=== PATIENT | male | born 2000 | race Caucasian/White ===

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

== ENCOUNTER 2020-04-08 19:08 | Emergency (ER) | payer OTHER, MEDICAID, SELFPAY ==
[2020-04-08 19:09] VITALS: BP 140/77; PULSE 83; RESP 16; TEMP 36.4; O2SAT 98; BMI 21.3
--- NOTE | 2020-04-08 20:00 | RAD_ITS ---
HISTORY: LACERATION OF DISTAL PINKY FINGER WITH A KNIFE Technique: Left hand AP, lateral, and oblique radiographs Comparison: January 16, 2019 Findings: No acute fracture or dislocation. The fracture through the proximal end of the first proximal metacarpal has healed Osseous mineralization, joint spaces, and alignment otherwise appear preserved as imaged. There may be some soft tissue swelling medial to the fifth metacarpal. There has been growth and progressive near-complete fusion of the distal radius and ulna physes. RAD/Hand Min 3 Views IMPRESSION: No acute osseous abnormality identified in the Left . at 2052 Reported and signed by: Pranav Garcia MD Electronically Signed: Pranav Garcia MD at 20:50 EDT Tel , Service support ,
--- NOTE | 2020-04-08 20:33 | ED.VIS.GEN ---
History of Present Illness Chief Complaint: Upper Extremity Injury Informant: Patient Narrative: Patient is a 19-year-old previously healthy male who presents to the emergency department for laceration to tip of left pinky finger. He states that he was at work cutting boxes whenever his hand slipped. No active bleeding. Denies any loss of sensation. No difficulty moving the finger. He is not on any anticoagulation. Denies any other injury. He states that his last tetanus shot was within the past year. No known aggravating or relieving factors. Past Medical History - Allergies and Home Meds Allergies/Adverse Reactions: Allergies amoxicillin Allergy (Verified 04/08/20 19:09) Rash Primary Care Physician: Pranav Mejia MD [Primary Care Provider] - As Needed Past Medical History: None Smoking Status: Current some day smoker Review of Systems All systems negative except as indicated General: Denies: Chills, Fever Cardiovascular: Denies: Chest pain Respiratory: Denies: Dyspnea Gastrointestinal: Denies: Abdominal pain, Nausea, Vomiting Musculoskeletal: Reports: Extremity Pain Skin: Reports: Wounds - Laceration Hematologic: Denies: Easy bruising, Easy bleeding Physical Exam Vital Signs/Narrative: Vital Signs Temp Pulse Resp BP Pulse Ox 04/08/20 19:09 97.6 F L 83 16 140/77 H 98 Inital Vital Signs reviewed: Yes General: Well nourished, Well developed Head: Normocephalic, Atraumatic Eyes: Perrl, EOMI ENT: Moist mucous membranes Cardiovascular: Regular rate Respiratory: No distress, CTA bilaterally Abdomen: Soft, Nondistended Extremities: - - Superficial laceration to tip of left pinky finger. No active bleeding. Sensation intact. Has full range of motion. Good capillary refill. No active bleeding. Cut extends 0.5 cm. Skin: Normal color Neurological: Alert, Oriented x3 Psychological: Normal affect, Normal Mood Diagnostic/Tx/Re-eval - Medical Decision Making Patient presents to the emergency department for cut to his left pinky finger. He is up-to-date on his tetanus vaccinations. This does not require any repair. This was cleaned with soap and water. Finger dressed with Band-Aid and antibiotic ointment. This did occur at work and the workman comp form was filled out. At this time patient be discharged home in stable condition. Warning signs and symptoms for which to return to the ED are reviewed with him. He understands and is agreeable this plan. Will discharge home in stable condition. ED Disposition - Plan for ED Patient: Disposition: Home or Assisted Living Diagnosis: Finger laceration Instructions: ED Laceration Small or Superficial Not Stitched Referrals: Pranav Mejia MD [Primary Care Provider] - As Needed
== END 2020-04-08 20:55 | disposition home or self-care (01) ==
LOC: ED 20:53
PROVIDERS: Emergency Provider Emergency Medicine; PCP Pediatrics
DX: S61.217A Laceration without foreign body of left little finger without damage to nail, initial encounter (principal); F17.200 Nicotine dependence, unspecified, uncomplicated; W26.8XXA Contact with other sharp object(s), not elsewhere classified, initial encounter; Y93.89 Activity, other specified; Y92.89 Other specified places as the place of occurrence of the external cause; Y99.0 Civilian activity done for income or pay
CPT/HCPCS: 73130; 99282

== ENCOUNTER 2021-05-27 13:22 | Emergency (ER) | payer OTHER, MEDICARE, MEDICAID, SELFPAY ==
[2021-05-27 13:23] VITALS: BP 149/91; PULSE 119; RESP 16; TEMP 36.4; O2SAT 98; BMI 24.8
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
--- NOTE | 2021-05-27 13:50 | RAD_ITS ---
STUDY: X-RAY - LEFT KNEE REASON FOR EXAM: Left knee pain, left knee injury. TECHNIQUE: 4 view(s) of the knee. COMPARISON: None. FINDINGS: Normal visualized distal femur. Normal visualized proximal tibia and fibula. Normal proximal tibiofibular articulation. Normal medial femorotibial compartment. Normal lateral femorotibial compartment. Normal patellofemoral articulation. There is a joint effusion. RAD/Knee 4 or More Views IMPRESSION: Joint effusion. No demonstrated fracture. Electronically Signed: Shon Jensen MD at 14:20 EST Tel , Service support ,
== END 2021-05-27 15:01 | disposition home or self-care (01) ==
LOC: ED 14:43
PROVIDERS: Emergency Provider Emergency Medicine; PCP Pediatrics
DX: S80.02XA Contusion of left knee, initial encounter (principal); S83.92XA Sprain of unspecified site of left knee, initial encounter; F17.210 Nicotine dependence, cigarettes, uncomplicated; V23.4XXA Motorcycle driver injured in collision with car, pick-up truck or van in traffic accident, initial encounter; Y93.55 Activity, bike riding; Y92.410 Unspecified street and highway as the place of occurrence of the external cause; Y99.8 Other external cause status
CPT/HCPCS: 73564; 99283

== ENCOUNTER 2022-12-13 21:10 | Emergency (ER) | payer MEDICARE, MEDICAID, SELFPAY ==
[2022-12-13 21:11] VITALS: BP 132/87; PULSE 76; RESP 16; TEMP 36.8; O2SAT 99; BMI 21.4
--- NOTE | 2022-12-13 21:36 | RAD_ITS ---
INDICATION: trauma EXAMINATION/TECHNIQUE: X-RAY - LEFT XR Wrist Min 3 Views 3 VIEWS COMPARISON: Left hand radiograph same day FINDINGS: SOFT TISSUES: No soft tissue swelling or gas. No radiopaque foreign body. BONES/JOINTS: No acute fracture. Osseous remodeling of the first metacarpal from prior injury.. Normal alignment. Preservation of the joint space.. No osseous erosion. Small bone island within the scaphoid.. RAD/Wrist min 3 Views IMPRESSION: No acute osseous finding. Sequela of old first of metacarpal fracture. Electronically Signed: Mushtaq Steele MD at 22:28 EDT ,
--- NOTE | 2022-12-13 22:00 | RAD_ITS ---
INDICATION: trauma EXAMINATION/TECHNIQUE: X-RAY - LEFT XR Hand Min 3 Views 3 VIEWS COMPARISON: Wrist radiographs same day FINDINGS: SOFT TISSUES: No soft tissue swelling or gas. No radiopaque foreign body. BONES/JOINTS: No acute fracture. Multiple overlapping soft tissue shadows project over the second metacarpal head. First metacarpal osseous remodeling from prior injury.. Normal alignment. Preservation of the joint space.. No sclerotic or destructive changes observed. Small scaphoid bone island. RAD/Hand Min 3 Views IMPRESSION: No acute osseous finding. Sequela of old first metacarpal fracture.. Electronically Signed: Mushtaq Steele MD at 22:31 EDT ,
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
== END 2022-12-13 22:37 | disposition home or self-care (01) ==
PROVIDERS: Emergency Provider Emergency Medicine; PCP Pediatrics; Visit Provider Emergency Medicine
DX: S67.22XA Crushing injury of left hand, initial encounter (principal); S60.212A Contusion of left wrist, initial encounter; F17.210 Nicotine dependence, cigarettes, uncomplicated; V29.888A Rider (driver) (passenger) of other motorcycle injured in other specified transport accidents, initial encounter
CPT/HCPCS: 73110; 73130; 99282

== ENCOUNTER 2023-03-19 13:02 | Emergency (ER) | payer MEDICARE, MEDICAID, SELFPAY ==
[2023-03-19 13:04] VITALS: BP 118/80; PULSE 87; RESP 18; TEMP 36.6; O2SAT 99; BMI 21.2
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
== END 2023-03-19 13:46 | disposition home or self-care (01) ==
LOC: ED 13:45
PROVIDERS: Emergency Provider Emergency Medicine; PCP Pediatrics; Visit Provider Emergency Medicine
DX: S09.90XA Unspecified injury of head, initial encounter (principal); F17.210 Nicotine dependence, cigarettes, uncomplicated; V47.6XXA Car passenger injured in collision with fixed or stationary object in traffic accident, initial encounter
CPT/HCPCS: 99282

== ENCOUNTER 2023-03-27 22:46 | Emergency (ER) | payer MEDICARE, MEDICAID, SELFPAY ==
[2023-03-27 22:47] VITALS: BP 132/79; PULSE 75; RESP 18; TEMP 36.3; O2SAT 99; BMI 21.7
--- NOTE | 2023-03-27 23:02 | CT_ITS ---
INDICATION: headaches, syncope EXAMINATION: CT BRAIN - CT Head or Brain W/O Contrast Injection TECHNIQUE: Multiple axial images were obtained of the head without intravenous contrast. A radiation dose optimization technique was used for this scan. IV Contrast dosage and agent: None. RADIATION DOSAGE (If Supplied By Facility): CTDIvol = ( 44.99 ) mGy, DLP = ( 779.24 ) mGycm COMPARISON: None. FINDINGS: BRAIN: No acute bleed. No edema. Decreased attenuation in the left posterior parietal/occipital region likely encephalomalacia. Ex vacuo dilatation of the posterior horn left lateral ventricle. Bettencourt-white matter differentiation is maintained. VENTRICLES AND SULCI: Not dilated. EXTRA-AXIAL: No hemorrhage, fluid collection, or mass. CALVARIUM / SKULL BASE: Unremarkable. FACE/SINUSES: Mucosal thickening with possible polyp or retention cyst in the right sphenoid sinus. SOFT TISSUES: Unremarkable. CT/Brain/Head without Contrast IMPRESSION: No definite acute abnormality. Hypoattenuation in the left parietal and occipital regions likely related to prior infarct or other prior insult. MRI would be helpful for further evaluation. Electronically Signed: Davina Suazo MD at 23:34 EDT ,
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
[2023-03-27 23:43] VITALS: PULSE 80; RESP 16; O2SAT 98
== END 2023-03-27 23:59 | disposition home or self-care (01) ==
PROVIDERS: Emergency Provider Emergency Medicine; PCP Pediatrics; Visit Provider Emergency Medicine
DX: G93.89 Other specified disorders of brain (principal); F17.210 Nicotine dependence, cigarettes, uncomplicated; S09.90XA Unspecified injury of head, initial encounter; V49.9XXA Car occupant (driver) (passenger) injured in unspecified traffic accident, initial encounter; W22.09XA Striking against other stationary object, initial encounter
CPT/HCPCS: 70450; 99282

== ENCOUNTER 2023-04-04 03:32 | Emergency (ER) | payer MEDICARE, MEDICAID, SELFPAY ==
[2023-04-04 03:33] VITALS: BP 128/72; PULSE 65; RESP 16; TEMP 36.1; O2SAT 99; BMI 21.9
--- NOTE | 2023-04-04 03:36 | EDS_ITS ---
HPI History of Present Illness Chief Complaint: Chest Pain [facility] Medical History ADD (attention deficit disorder) ADHD Bipolar 1 disorder TBI (traumatic brain injury) Home Medications NK 03/19/23 [History Last Taken Unknown] Allergy/AdvReac Type Severity Reaction Status Date / Time amoxicillin Allergy Rash Verified 04/04/23 03:36 Family History (Updated 03/19/23 @ 13:23 by Shira Bernal) Father Diabetes Mother Diabetes Social History household members: family housing: apartment Smoking Status: Current some day smoker tobacco type: cigarettes EXAM Physical Exam Const Vital Signs: 04/04/23 03:33 Temperature 96.9 F L Temperature Source Temporal Pulse Rate 65 Respiratory Rate 16 Blood Pressure 128/72 H Blood Pressure Mean 90 Pulse Ox 99 Oxygen Delivery Method Room Air MDM MDM MDM Narrative Medical decision making narrative: HISTORY OF PRESENT ILLNESS: 22-year-old male presents with chest pain. Patient notes midsternal chest pain towards the deep breath. Started through lifting boxes. He further states midsternal chest pain at work while moving boxes. States his pain was worse with exertion. States he has no pain now. 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 He is to be worked up he does not want a blood work at this time. No nausea vomiting. No bleeding diathesis. No recent illness such as cough or fever Patient denies sudden onset of pain, no tearing sensation, no migratory symptoms, no new numbness, weakness or loss of sensation. Patient denies family history or personal history of Marfan syndrome or Samy-Danlos. The patient denies recent surgery in the last 4 weeks or immobilization in the last 3 days, denies previous diagnosis of DVT or PE, hemoptysis, unilateral leg swelling or malignancy with treatment the last 6 months. No estrogen use noted. REVIEW OF SYSTEMS: All other systems reviewed and are negative except as noted in the history of present illness. At least 10 review of systems reviewed and are negative except as noted in history of present illness. PHYSICAL EXAM: Nursing triage notes reviewed, Vital signs reviewed Constitutional: please see mdm HENT: MMM Eyes: Pupils equal round and reactive to light, Extraocular muscles intact Neck: No stridor, no JVD, full neck ROM Lungs: Clear to auscultation, No wheezing or rales. No increased work of breathing, no conversational dyspnea, no accessory muscle use, no nasal flaring. No respiratory distress noted Heart: Regular rate and rhythm, No murmurs, No rubs and No gallops, 2+ distal pulses (radial, femoral, posterior tibial) in all extremities Abdomen: Soft, there is no tenderness, rigidity, rebound or guarding, no obvious peritoneal signs, no palpable pulsatile abdominal masses, no auscultated abdominal bruit : No CVAT Extremities: No edema Neuro: No focal neurological deficits, cranial nerves II through XII intact, 5/5 strength in all extremities. Intact sensation to light touch in all extremities, 2+ reflexes bilateral patella tendons. Normal gait. No ataxia. Skin: No rash or lesions noted MEDICAL DECISION MAKING: Chief Complaint: Chest pain External records reviewed: No recent cardiac catheterizations, stress test or echocardiograms noted in the chart Factors affecting care: ADHD, bipolar disorder Social determinants of health: History mental health disorders History obtained from others: EMS Consults: none MDM Narrative: Patient was hemodynamically stable, afebrile, nontoxic-appearing. Exam with focal cardiopulmonary abnormalities. I considered the following differential diagnosis: ACS, arrhythmia, anemia, electrolyte abnormality, pneumonia, pneumothorax, GI etiology, PE I offer the patient labs, chest x-ray to further elucidate the etiology patient complaints. Patient was alert and orient x3 and had capacity to make decisions and chose to forego blood work or imaging at this time. He states he had no chest pain. He states he is not concerned. States the only reason he is here is because his boss made him come to the emergency department EKG with sinus bradycardia, normal axis, normal intervals, no obvious STEMI, no signs of right heart strain, no Brugada syndrome noted, no ARVD or WPW noted PE less likely given low risk Wells score. Aortic dissection is thought to be less likely given no sudden ripping or tearing pain, migratory pain, palpable pulse inequalities, no focal neurologic deficits concurrent with chest pain. Chance of dissection less than 07/1999. Pericarditis less likely given no pathognomonic EKG changes (no diffuse ST elevations, [place] depressions). GI etiology (i.e. Boerhaave syndrome) less likely given no chest or neck crepitus, no vomiting or forced retching. The patient and/or family, caregivers express understanding. The patient and/or family, caregivers agrees with the plan. Total critical care time today provided was at least 0 minutes. This excludes separately billable procedures. Critical care time (if documented) is secondary to the patient having high probability of clinically significant/life threatening deterioration in the patient's condition which required my urgent intervention. Impression: 1. Chest pain Disposition: Discharge home Jensen Soler DO Discharge Plan Triage Chief Complaint: Chest Pain ED Provider: Jensen Soler Dx/Rx/DC Orders Instructions: Chest Pain [facility] Prescriptions: No Action NK Stand Alone Forms: Work / School Excuse Primary Care Provider: Pranav Mejia Referrals: Pranav Mejia MD [Primary Care Provider] - Activity Restrictions/Additional Instructions: Thank you for trusting us with your care today! Please take Tylenol (2 pills, 650 mg), ibuprofen (2 pills, 400 mg) every 6 hours as needed for pain and fever control. Please return to the emergency department if your symptoms change or worsen. Typically develop loss of consciousness, worsening chest pain, shortness of breath, coughing blood, leg swelling, focal weakness numbness or loss of sensation. Please follow with your primary care physician for further outpatient evaluation and management. Disposition Disposition: Home, Self Care
[2023-04-04 04:06] VITALS: BP 126/74; PULSE 68
--- NOTE | 2023-04-04 04:20 | EKG12_ITS ---
Test Reason : CP Blood Pressure : / mmHG Vent. Rate : 053 BPM Atrial Rate : 053 BPM P-R Int : 150 ms QRS Dur : 092 ms QT Int : 408 ms P-R-T Axes : 038 053 031 degrees QTc Int : 382 ms Sinus bradycardia with marked sinus arrhythmia Otherwise normal ECG Confirmed by CATHLEEN SORIA, HARINDER ([id number]), magazine editor J CARLOS CAEMRON ([id number]) on 04/05/2023 2:41:20 PM Referred By: JOSE Confirmed By:HARINDER CONNOLLY MD
== END 2023-04-04 04:07 | disposition home or self-care (01) ==
LOC: ED 04:03
PROVIDERS: Emergency Provider Emergency Medicine; PCP Pediatrics; Visit Provider Emergency Medicine
DX: R07.9 Chest pain, unspecified (principal); F31.9 Bipolar disorder, unspecified; F17.210 Nicotine dependence, cigarettes, uncomplicated; F90.9 Attention-deficit hyperactivity disorder, unspecified type; R00.1 Bradycardia, unspecified
CPT/HCPCS: 93005; 99284; A4216

== ENCOUNTER 2023-06-15 17:57 | Emergency (ER) | payer MEDICARE, MEDICAID, SELFPAY ==
[2023-06-15 17:57] VITALS: BP 130/87; PULSE 65; RESP 18; TEMP 35.6; O2SAT 100; BMI 22.4
[2023-06-15 20:05] VITALS: BP 135/96; PULSE 77; RESP 16; TEMP 37.3; O2SAT 100
--- NOTE | 2023-06-15 20:29 | EDS_ITS ---
HPI History of Present Illness Chief Complaint: Dental Informant: patient Onset/Context/Timing Onset: Today Context: Gradual Onset Timing: Intermittent Quality: Sharp, aching, throbbing Location: Left upper molars Worsened by: Eating Relieved by: - (Nothing) Associated Symptoms Assocated Symptom - Dental: face swelling; Negative for fever, jaw swelling, cold sensitivity or hot sensitivity Narrative Narrative: Patient presents with left upper dental pain that began earlier today. Patient states it is gradually gotten worse. Patient states it comes and goes. Patient describes it as sharp and aching. Patient states it is mainly over the left upper molars. Patient states it is worse with eating. Patient admits to some swelling of his cheek. Patient denies any fevers or chills. Patient denies any hot or cold sensitivity. Patient does admit to a mild headache. [facility] Medical History ADD (attention deficit disorder) ADHD Bipolar 1 disorder TBI (traumatic brain injury) Home Medications clindamycin HCl 300 mg capsule (Cleocin HCl) 300 mg PO Q6H #40 CAPSULES 06/15/23 [Rx Last Taken Unknown] Allergy/AdvReac Type Severity Reaction Status Date / Time amoxicillin Allergy Rash Verified 04/04/23 03:36 Family History (Updated 03/19/23 @ 13:23 by Shira Bernal) Father Diabetes Mother Diabetes Surgical History no surgical history no surgical history Social History household members: family housing: apartment Smoking Status: Current some day smoker tobacco type: cigarettes ROS ROS ED Constitutional Constitutional ED: Denies chills or fever(s) Eyes Eyes: Denies blurry vision or change in vision ENT ENT ED: Denies rhinorrhea or sore throat Cardiovascular Cardiovascular: Denies chest pain or palpitations Respiratory/Chest Respiratory/Chest: Denies cough or dyspnea Gastrointestinal Gastrointestinal: Denies nausea or vomiting Genitourinary Genitourinary ED: Denies dysuria or hematuria Musculoskeletal Musculoskeletal: Denies back pain or neck pain Integumentary Denies abscess or rash Neurologic Neurologic: Reports headache(s); Denies weakness Allergic/Immunologic Allergic/Immunologic ED: Denies mouth swelling or urticaria EXAM Physical Exam Const Vital Signs: 06/15/23 17:57 06/15/23 20:05 Temperature 96.1 F L 99.1 F Temperature Source Temporal Temporal Pulse Rate 65 77 Respiratory Rate 18 16 Blood Pressure 130/87 H 135/96 H Blood Pressure Mean 101 109 Pulse Ox 100 100 Oxygen Delivery Method Room Air Room Air Positive well nourished and well developed General Appearance ED: well developed and NAD HEENT HEENT Narrative: There is a large dental carry noted over the left upper third molar. There is some mild gingival edema around this tooth. There is no fluctuance. There is no evidence of any abscess. There is no sublingual edema edema. There is no evidence of Yury's angina. Oropharynx is clear. Airway is patent. Mouth ED: Yes oral and palatal mucosa normal, Yes lips normal and Yes tongue normal Mouth: oral and palatal mucosa normal, lips normal and tongue normal Teeth and Gingiva: caries Throat: posterior oropharynx normal Neck supple and no JVD General: Negative for anterior neck swelling, tenderness or submandibular swelling Neuro oriented x3, CN's II-XII intact bilaterally, moves all extremities, no focal motor deficits and no sensory deficits noted Sensorium / Orientation: alert Motor Exam: strength 5/5 throughout Psych mental status grossly normal MDM MDM MDM Narrative Medical decision making narrative: Patient was advised that he has infected dental caries. Patient was given a dose of clindamycin here. Patient was given a prescription for clindamycin. Patient was given dental referral sheet. Patient was instructed to follow-up with a dentist in 5 to 7 days. Patient was instructed to return if worse in any way. Patient was instructed to take Tylenol or ibuprofen as needed for pain. Patient understood and was agreeable with the plan. All questions were answered. Discharge Plan Triage Chief Complaint: Dental ED Provider: Arturo Lantigua Dx/Rx/DC Orders Clinical Impression: Infected dental caries Instructions: ED Dental Cavity Prescriptions: New clindamycin HCl [Cleocin HCl] 300 mg capsule 300 mg PO Q6H Qty: 40 0RF Primary Care Provider: Pranav Mejia Referrals: Pranav Mejia MD [Primary Care Provider] - Dentist,Your [STAFF PHYSICIAN] - 5-7 Days Disposition Disposition: Home, Self Care
[2023-06-15] MEDS: Clindamycin HCl 150 MG Capsule 300 MG PO (20:38)
== END 2023-06-15 20:40 | disposition home or self-care (01) ==
PROVIDERS: Emergency Provider Emergency Medicine; PCP Pediatrics; Visit Provider Emergency Medicine
DX: K02.9 Dental caries, unspecified (principal); F17.210 Nicotine dependence, cigarettes, uncomplicated; R51.9 Headache, unspecified
CPT/HCPCS: 99282

== ENCOUNTER 2023-08-17 21:02 | Emergency (ER) | payer OTHER, MEDICARE, MEDICAID, SELFPAY ==
[2023-08-17 21:03] VITALS: BP 135/76; PULSE 89; RESP 18; TEMP 35.9; O2SAT 99; BMI 23.5
--- OUTSIDE RECORDS SUMMARY | 2023-08-17 21:25 | XMS RPT_ITS | CCD ---
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 disability TBI (traumatic brain injury) ([facility]) History reviewed. No pertinent surgical history. ALLERGIES Amoxicillin MEDICATIONS melatonin 3 mg tablet Take 1 tablet by mouth once daily. risperiDONE (RISPERDAL) 1 mg tablet Take 1 tablet by mouth twice daily. albuterol HFA (PROVENTIL HFA, VENTOLIN HFA) 90 mcg/actuation inhaler Inhale 2 Puffs as instructed four times daily as needed. FOR WHEEZING AND SHORTNESS OF BREATH. amphetamine sulfate 5 mg tab Take 3 tablets by mouth once daily for 1 day. Amphetamine-Dextroamphetamine (ADDERALL) 30 mg tablet Take 1 tablet by mouth once daily for 1 day. History reviewed. No pertinent family history. Social History Tobacco Use Smoking status: Never Smoker Smokeless tobacco: Never Used Substance Use Topics Alcohol use: Not on file Drug use: Not on file BP 122/80 Pulse 84 Temp 36.7 C (98.1 F) Resp 20 Wt 69.7 kg (153 lb 9.6 oz) SpO2 99% Review of Systems Constitutional: Negative for chills, fever and malaise/fatigue. HENT: Negative for congestion, ear discharge, ear pain, sinus pain and sore throat. Eyes: Negative for blurred vision, pain, discharge and redness. Respiratory: Negative for cough, hemoptysis, sputum production, shortness of breath, wheezing and stridor. Cardiovascular: Negative for chest pain. Gastrointestinal: Negative for abdominal pain, diarrhea, nausea and vomiting. Genitourinary: Negative. Musculoskeletal: Negative for myalgias. Skin: Positive for itching and rash. Neurological: Negative for dizziness and headaches. Objective Physical Exam Constitutional: General: He is not in acute distress. Appearance: He is not diaphoretic. HENT: Head: Normocephalic. Mouth/Throat: Mouth: Mucous membranes are moist. Pharynx: Oropharynx is clear. No oropharyngeal exudate or posterior oropharyngeal erythema. Eyes: Conjunctiva/sclera: Conjunctivae normal. Pupils: Pupils are equal, round, and reactive to light. Cardiovascular: Rate and Rhythm: Normal rate and regular rhythm. Heart sounds: Normal heart sounds. Pulmonary: Effort: Pulmonary effort is normal. No tachypnea, accessory muscle usage or respiratory distress. Breath sounds: Normal breath sounds. No stridor. Abdominal: Palpations: Abdomen is soft. Tenderness: There is no abdominal tenderness. Musculoskeletal: Cervical back: Normal range of motion and neck supple. No rigidity or tenderness. Lymphadenopathy: Cervical: No cervical adenopathy. Skin: General: Skin is warm and dry. Comments: Excoriation noted bilateral lower legs and arms. Scabbing noted. No secondary bacterial infection. No remote redness. Neurological: Mental Status: He is alert and oriented to person, place, and time. ASSESSMENT/PLAN: 1. Rash - ICD9: 782.1, ICD10: R21 Patient diagnosed with rash. No evidence of bacterial infection. Patiently placed on prednisone burst. Patient will follow up with dermatology for further evaluation and care. Red flags for prompt reevaluation discussed. Patient was educated on supportive therapies. Patient will follow up with primary care provider as needed. Patient was instructed to immediately proceed to emergency room for any new, worsening, or symptoms lasting longer than anticipated. The patient's clinical presentation is otherwise unremarkable at this time. Based on exam and clinical finding, the patient is stable for discharge. Plan of care was discussed with patient. Patient verbalizes understanding and agrees to plan of care. This note was generated using [email or web address] software. It may contain errors in wording, punctuation, or spelling. Omar Lim APRN.SANDY documented in this encounter [facility] Evaluation + Plan note Note Date & Type Note Facility Evaluation + Plan note No data available for this section [facility] Evaluation note Note Date & Type Note Facility documented in this encounter [facility] Progress note Note Date & Type Note Facility Progress note No data available for this section [facility] Purpose Family History No Family History Records FoundNo Family History Records FoundNo Family History Records Found Advance Directives No Advanced Directives Records FoundNo Advanced Directives Records FoundNo Advanced Directives Records Found Additional Source Comments (unrecognized sect ion and content) No Status Records FoundNo Status Records FoundNo Status Records Found INFORMATION SOURCE (unrecogn ized section and content) DATE CREATED AUTHOR AUTHOR'S ORGANIZ ATION 10/16/2021 [facility] DATE CREATED AUTHOR AUTHOR'S ORGANIZ ATION 09/09/2022 [facility] Source Comments (unrecognize d section and content) In the event this informatio n is protected by the Federal Confidentiality of Alcohol and Drug Abuse Patient Records regulations: The Federal rules restrict any use of the information to criminally investigate or prosecute any alcohol or drug abuse patient.[facility] Reason for Visit (unrecogniz ed section and content) Care Teams (unrecognized sec tion and content) FOR RECORDS PERTAINING TO PATIENTS WHO ARE OR HAVE BEEN ENROLLED IN A CHEMICAL DEPENDENCY/SUBSTANCEABUSE PROGRAM, SOME INFORMATION MAY BE OMITTED. This clinical summary was aggregated from multiple sources. Caution should be exercised in using it in the provision of clinical care. This summary normalizes information from multiple sources, and as a consequence, information in this document may materially change the coding, format and clinical context of patient data. In addition, data may be omitted in some cases. CLINICAL DECISIONS SHOULD BE BASED ON THE PRIMARY CLINICAL RECORDS. [facility]. provides no warranty or guarantee of the accuracy or completeness of information in this document.
--- NOTE | 2023-08-17 22:52 | EDS_ITS ---
HPI History of Present Illness Chief Complaint: Laceration Informant: patient Narrative Narrative: Patient is a 22-year-old male with past medical history of ADHD and asthma. He states he was at work this evening roughly 1 hour prior to arrival when a piece of metal struck him in the right sided face/chin. He reports that he did not experience any type of LOC. He denies any history of bleeding disorder or blood thinner use. He denies any difficulty opening or closing his jaw or difficulty swallowing. He states there was concern he may need wound closed with sutures or glue and therefore comes in for evaluation. Patient states he is unsure of his tetanus status but he does not want one at this time [facility] Medical History ADD (attention deficit disorder) ADHD Bipolar 1 disorder TBI (traumatic brain injury) Home Medications dextroamphetamine-amphetamine ER 20 mg 24hr capsule,extend release 40 mg PO LUNCH 08/17/23 [History Last Taken Unknown] Allergy/AdvReac Type Severity Reaction Status Date / Time amoxicillin Allergy Rash Verified 08/17/23 21:02 Family History Father Diabetes Mother Diabetes Social History household members: family housing: apartment Smoking Status: Current some day smoker tobacco type: cigarettes ROS ROS ED Constitutional Constitutional ED: Denies chills or fever(s) Eyes Eyes: Denies change in vision ENT ENT ED: Denies sore throat Cardiovascular Cardiovascular: Denies chest pain Respiratory/Chest Respiratory/Chest: Denies cough or dyspnea Gastrointestinal Gastrointestinal: Denies abdominal pain, diarrhea, nausea or vomiting Genitourinary Genitourinary ED: Denies dysuria Musculoskeletal Musculoskeletal: Denies back pain, myalgias or neck pain Integumentary Reports other Details: Positive facial laceration Neurologic Neurologic: Denies headache(s) or paresthesias Hematologic/Lymphatic Hematologic/Lymphatic: Denies easy bleeding or easy bruising EXAM Physical Exam Const Vital Signs: 08/17/23 21:03 08/17/23 23:31 Temperature 96.6 F L 98.6 F Temperature Source Temporal Pulse Rate 89 80 Respiratory Rate 18 12 Blood Pressure 135/76 H 128/74 H Blood Pressure Mean 95 92 Pulse Ox 99 97 Oxygen Delivery Method Room Air Positive well nourished and well developed General Appearance ED: well developed HEENT HEENT Narrative: Patient has a linear 2 cm laceration along the right lateral portion of the chin. The wound is subcutaneous layer deep with minimal ooze of blood and no foreign body. Otherwise head shows no signs of depressed or basilar skull fracture No signs of derangement to the mandible No signs of dental fracture Eyes PERRL and EOMs intact bilaterally Neck supple Resp normal respiratory effort and clear to auscultation bilaterally Cardio regular rate and regular rhythm Extremity normal to inspection Neuro oriented x3, CN's II-XII intact bilaterally and no sensory deficits noted Sensorium / Orientation: alert Motor Exam: strength 5/5 throughout Psych mental status grossly normal Skin Skin Narrative: Laceration to the face as documented above MDM MDM MDM Narrative Medical decision making narrative: Patient presented to the ER with stable vitals and reported direct trauma to the face. There is no LOC he is not on blood thinners and he had no signs of derangement to the teeth or jaw. Therefore I felt no need for head or cervical spine CT. as his exam does not suggest traumatic brain injury such as epidural or subdural hematoma and it does not suggest a mandibular fracture or jaw dislocation I do not feel there is need for workup. Patient had the wound closed as document below with Dermabond and is otherwise safe for discharge Patient had the wound cleaned with chlorhexidine. Manual pressure was applied to bring the wound edges he has a good approximation. Dermabond was applied over top of the wound and held the wound edges together well. Patient tolerated procedure well without complication. History & Record Review Discussion w/independent historian: Patient Discharge Plan Triage Chief Complaint: Laceration ED Provider: Yordy Galeana Dx/Rx/DC Orders Clinical Impression: Facial laceration, ADHD, Asthma Instructions: ED Laceration, Face: Skin Glue Prescriptions: No Action dextroamphetamine-amphetamine 20 mg capsule,extended release 24hr 40 mg PO LUNCH Patient Comments: TAKE 2 CAPSULES BY MOUTH DAILY before work Primary Care Provider: Care Physician,No Primary Referrals: Yung Forrest MD [Med Staff - Active Staff] - Care Physician,No Primary [Primary Care Provider] - Activity Restrictions/Additional Instructions: Your Dermabond/skin glue should fall off spontaneously over the next 10 to 14 days. Follow-up with your family doctor and/or occupational health for repeat evaluation if needed. If you have any concerns or secondary infection please return for repeat evaluation Disposition Disposition: Home, Self Care Discharge Date/Time: 08/17/23 23:34
[2023-08-17 23:31] VITALS: BP 128/74; PULSE 80; RESP 12; TEMP 37; O2SAT 97
== END 2023-08-17 23:34 | disposition home or self-care (01) ==
PROVIDERS: Emergency Provider Emergency Medicine; Visit Provider Emergency Medicine
DX: S01.81XA Laceration without foreign body of other part of head, initial encounter (principal); F17.210 Nicotine dependence, cigarettes, uncomplicated; J45.909 Unspecified asthma, uncomplicated; F90.0 Attention-deficit hyperactivity disorder, predominantly inattentive type; W22.8XXA Striking against or struck by other objects, initial encounter
CPT/HCPCS: 12011; 99282